=== PATIENT | male | born 1980 ===

== ENCOUNTER 2016-11-29 23:01 | Emergency (ER) | payer SELFPAY ==
[~2016-11-29] VITALS: Ht 180.3 cm; Wt 122.4 kg
[~2016-11-29 23:01] MED LIST: BUSPAR10 MG PO; COLACE100 MG PO; ELAVIL10 MG PO; HYDROCHLOROTHIA25 MG PO; NEURONTIN300 MG PO; NORCO 325-5 MG1 TAB PO; PRILOSEC20 MG PO; TRAMADOL HCL50 MG PO
[2016-11-30] MEDS ORDERED: LIORESAL10 MG PO (01:24)
[2016-11-30] MEDS ORDERED: DEPO-TESTO200 MG/1 M IM (01:26)
== END 2016-11-30 00:20 | disposition short-term general hospital (02) ==
LOC: ER 23:01
DX: S29.012A Strain of muscle and tendon of back wall of thorax, initial encounter (principal); X50.9XXA Other and unspecified overexertion or strenuous movements or postures, initial encounter
CPT/HCPCS: J1170; J1885